=== PATIENT | male | born 1990 | race Caucasian/White ===

== ENCOUNTER → 2019-03-25 | Outpatient (CLI) | payer OTHER ==
--- NOTE | 2019-03-25 11:38 | XR ---
EXAMINATION TYPE: XR scoliosis survey DATE OF EXAM: 03/25/2019 COMPARISON: NONE HISTORY: Scoliosis TECHNIQUE: Frontal and lateral views of the thoracolumbar spine were obtained FINDINGS: There is a very mild dextroscoliosis of the lumbar spine. Stauffer angle from the superior endp late of L1 to the inferior endplate of L4 measures only 3 degrees. No paraspinal masses are hemiverte brae are seen. Visualized bowel is nondilated with mild degree colonic fecal stasis. Lungs are well aerated and thei r visualized portions. IMPRESSION: Very mild dextroscoliosis of the lumbar spine with Stauffer angle only 3 degrees.
== END | disposition home or self-care (01) ==
LOC: RADXRMAIN 10:55
PROVIDERS: ATTEND Internal Medicine Critical Care Medicine
DX: M41.9 Scoliosis, unspecified (principal)
CPT/HCPCS: 72082

== ENCOUNTER → 2019-10-16 | Outpatient (CLI) | payer OTHER | END | disposition home or self-care (01) | LOC: LABWHC1 14:12 | PROVIDERS: ATTEND Internal Medicine Critical Care Medicine | DX: Z03.818 Encounter for observation for suspected exposure to other biological agents ruled out (principal) | CPT/HCPCS: U0003; C9803 ==

== ENCOUNTER → 2019-12-09 | Outpatient (CLI) | payer OTHER | END | disposition home or self-care (01) | LOC: LABWHC1 14:12 | PROVIDERS: ATTEND Family Medicine | DX: R68.83 Chills (without fever) (principal) | CPT/HCPCS: U0003; C9803 ==